=== PATIENT | female | born 1940 | race Caucasian/White ===

== ENCOUNTER 2020-08-23 12:26 | Outpatient (REF) | payer OTHER, SELFPAY ==
--- NOTE | 2020-08-24 08:05 | MHC.AU.P13 ---
Hearing Aid Evaluation- Binaural Date of Visit: 08/23/20 [place] Superintendent Used: Not Applicable Description of Hearin06/22/2020 [facility] Asymmetric mild dropping to profound sensorineural hearing loss with the left ear being poorer than right. Speech discrimination ability is 76% for the right ear at a level of 80 dB HL and 48% for the left at 80dB HL /44% at 75 dB HL Summary: Current hearing aids are not working properly, having increased difficulty with speech understanding, and patient is going through [facility] for new aids. Patient has been diagnosed with cancer, Lymphoma Grade 3A with Chemotherapy treatment. Also diagnosed with Grave's Disease and possible Meniere's Disease. Patient reports some difficulty manipulating current aids, comfortably inserting the domes correctly in the canals, and she is concerned about manual dexterity and moisture problems with aids in the future. Recommend binaural rechargeable JENELLE aids with custom canal lock slim tips. Hearing Instrument Selection: Right Ear: Accident Report Clerk: Happify Model: [address] [employer] M 70-R Battery Size: Rechargeable Color: [place] Interior Wirer: Tubing: Type of Dome: Type of Mold: Left Ear: Accident Report Clerk: Phonak Model: [address] [employer] M 70-R Battery Size: Rechargeable Color: [place] Interior Wirer: Tubing: Type of Dome: Type of Mold: Accessories/Assistive Technology: Recommendations: Recommendations: Recommendations: Diagnosis Code(s): Primary Diagnosis: H90.3 Bilateral Sensorineural Hearing Loss Secondary Diagnosis: N/A Services Performed: Hearing Aid Evaluation and Earmold: Assorted Hearing Aid Service: Number of Individual Battery Cells: Packages of Batteries: Signature: Student/Clinical Fellow: I have reviewed/agreed with student/fellow documentation: Provider: Jackie Alexis, [facility]
--- NOTE | 2020-08-24 08:53 | MHC.AU.P13 ---
Hearing Aid Evaluation- Binaural Date of Visit: 08/23/20 Child Life Therapist Used: Not Applicable Description of Hearin06/22/2020 [facility] Asymmetric mild dropping to profound sensorineural hearing loss with the left ear being poorer than right. Speech discrimination ability is 76% for the right ear at a level of 80 dB HL and 48% for the left at 80dB HL /44% at 75 dB HL Summary: Patient reports her current binaural Oticon OPN 1 RITE with Right #1 85 gain and Left #2 85 gain receivers obtained through [facility] and paid for by [facility] are not working properly and she is having difficulty with increased speech understanding problems, feedback, comfortably inserting the domes in the canals (she has VERY sharply curved canal for both ears), and moisture. New hearing aids are recommended as part of the remediation process to improve hearing ability. Patient is diagnosed with Lymphoma Grade 3A and has received chemotherapy,Graves's Disease, and possible Meniere's Disease. Patient is concerned about manipulation problems, particularly if the cancer progresses. 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 Recommending rechargeable JENELLE aids with custom slim tips to help with insertion and dexterity concerns. Hearing Instrument Selection: Right Ear: Microbiology Lab Analyst: Phonak Model: [place] M 70-R Battery Size: Rechargeable Color: [place] Flight Engineer Helicopter: #2 Medium Type of Mold: Canal Lock Slim Tip Left Ear: Microbiology Lab Analyst: Phonak Model: [place] M 70-R Battery Size: Rechargeable Color: [place] Flight Engineer Helicopter: #1 Medium Type of Mold: Canal Lock Slim Tip Recommendations: Took impressions of both ears. Left ear had some cerumen adhering to the canal when was removed prior to impressions. Redness is noted in the ear canal, but no bleeding. E-mailing quote to [facility]. When approval is received, will order aids and schedule a Hearing Aid Fitting appointment Diagnosis Code(s): Primary Diagnosis: H90.3 Bilateral Sensorineural Hearing Loss Services Performed: Hearing Aid Evaluation and Earmold Impressions: Signature: Provider: Jackie Alexis, [facility]
== END 2020-08-23 12:27 | disposition home or self-care (01) ==
LOC: HO.HAP 12:26
PROVIDERS: PCP Family Medicine; Referring Provider Family Medicine; Visit Provider Family Medicine
DX: H90.3 Sensorineural hearing loss, bilateral (principal); Z46.1 Encounter for fitting and adjustment of hearing aid
CPT/HCPCS: 92591; V5264; V5275

== ENCOUNTER 2020-10-13 09:50 | Outpatient (REF) | payer OTHER, SELFPAY | END 2020-10-13 09:51 | disposition home or self-care (01) | LOC: HO.HAP 09:50 | PROVIDERS: Visit Provider Family Medicine | DX: Z46.1 Encounter for fitting and adjustment of hearing aid (principal); H90.3 Sensorineural hearing loss, bilateral | CPT/HCPCS: V5011; V5020; V5160; V5261; V5264 ==

== ENCOUNTER 2020-10-29 11:40 | Outpatient (REF) | payer SELFPAY | END 2020-10-29 11:41 | disposition home or self-care (01) | LOC: HO.HAP 11:40 | PROVIDERS: Visit Provider Family Medicine | DX: Z13.89 Encounter for screening for other disorder (principal) ==

== ENCOUNTER 2020-11-09 12:47 | Outpatient (REF) | payer SELFPAY | END 2020-11-09 12:48 | disposition home or self-care (01) | LOC: HO.HAP 12:47 | PROVIDERS: Visit Provider Family Medicine | DX: Z13.89 Encounter for screening for other disorder (principal) ==